=== PATIENT | male | born 1955 | race Caucasian/White ===

== ENCOUNTER → 2016-05-20 | Outpatient (CLI) | payer BC ==
--- NOTE | 2016-05-22 07:39 | XR ---
EXAMINATION TYPE: XR lumbosacral spine min 4V DATE OF EXAM: 05/20/2016 5:01 PM CLINICAL HISTORY: Chronic low back pain TECHNIQUE: Frontal, lateral, and oblique images of the lumbar spine are obtained. COMPARISON: None FINDINGS: There are 5 lumbar type vertebral bodies identified. The lumbar spine shows satisfactory alignment without evidence of acute fracture or dislocation. Vertebral body heights are within normal limits. There is mild multilevel disc space narrowing with relative sparing of L3-L4 and L4-L5 leve ls. There is some mild multilevel spurring most prominent spur seen from the left lateral inferior L2 vertebra and the anterior superior L2 vertebra. The oblique images appear within normal limits. Some vascular calcification overlying soft tissue is seen. IMPRESSION: No acute fracture or dislocation is seen in the lumbar spine. Mild multilevel degenerati ve changes as detailed above.
== END | disposition home or self-care (01) ==
LOC: RADXRYALE 16:57
PROVIDERS: ATTEND Family Medicine
DX: M51.36 Other intervertebral disc degeneration, lumbar region (principal)
CPT/HCPCS: 72110

== ENCOUNTER 2017-08-06 10:06 | Day surgery (SDC) | payer BC ==
[2017-08-04 15:53] VITALS: BMI 38.7
[~2017-08-06 10:06] MED LIST: LACTATED RINGERS 1,000 ML IV SCH; LIDOCAINE 1% 20 ML VIAL (10MG/ML) FOR IV START INTRADERMA PRN; MIDAZOLAM 2 MG/2 ML VIAL IV PRN
[2017-08-06 10:35] VITALS: TEMP 97
[2017-08-06] MEDS ORDERED: LIDOCAINE 1% INJ 10MG/ML (20 ML MDV) ONE (11:21)
[2017-08-06] MEDS ORDERED: PROPOFOL 10 MG/ML 20 ML VIAL IV ONE (11:21)
--- NOTE | 2017-08-06 11:57 | P.PCN ---
Date of Procedure: 08/06/17 Procedure(s) Performed: Procedure: Colonoscopy and biopsy. Preoperative diagnosis: Screening for neoplasia. Postoperative diagnosis: Minimal sigmoid diverticulosis with no evidence of acute diverticulitis, strictures, polyps or cancer. Preparation: HalfLytely prep. Sedation: Was provided by anesthesia. Brief clinical history: The patient is a 61-year-old male who is scheduled for this evaluation for screening for neoplasia age being his risk factor. He has no abdominal complaints, bleeding or anemia. No family history of colon cancer. This would be his first colonoscopy. Procedure: With the patient on his left lateral decubitus position and after informed consent and adequate sedation, the perianal area was inspected and it did not show any fissures or fistulas. There were no masses felt on digital rectal examination. The Olympus CFQ 160L video colonoscope was then inserted in the rectum in the usual fashion and advanced to the cecum. There was minimal diverticulosis seen in the sigmoid with no evidence of acute diverticulitis or strictures. No polyps or tumors were seen. I retroflexed the endoscope in the rectum before the endoscope was withdrawn. The patient tolerated the procedure well. Plan: The patient was reassured. Will await biopsy results. He will follow up with you as planned and I suggested repeat colonoscopy in 10 years.
[2017-08-06 12:13] VITALS: BP 142/94; PULSE 75; RESP 16
== END 2017-08-06 12:30 | disposition home or self-care (01) ==
LOC: ORWHC2ENDO 10:06
DX: Z12.11 Encounter for screening for malignant neoplasm of colon (principal); K57.30 Diverticulosis of large intestine without perforation or abscess without bleeding; E78.5 Hyperlipidemia, unspecified; E07.9 Disorder of thyroid, unspecified; I10 Essential (primary) hypertension; Z88.0 Allergy status to penicillin; Z88.1 Allergy status to other antibiotic agents; Z88.8 Allergy status to other drugs, medicaments and biological substances; Z79.890 Hormone replacement therapy; Z79.899 Other long term (current) drug therapy; Z87.891 Personal history of nicotine dependence; Z95.1 Presence of aortocoronary bypass graft
CPT/HCPCS: G0121; J2001; J2704

== ENCOUNTER → 2017-11-10 | Outpatient (CLI) | payer BC ==
--- NOTE | 2017-11-10 23:28 | XR ---
EXAMINATION TYPE: XR lumbar spine 2 or 3V DATE OF EXAM: 11/10/2017 COMPARISON: NONE HISTORY: 62-year-old male with low back pain TECHNIQUE: 3 view FINDINGS: Osteopenia. 5 lumbar type vertebral bodies. Hypertrophic facet arthropathy lower lumbar spine. Trace grade 1 retrolisthesis at L2-L3 with mild multilevel degenerative disc disease and endplate spondylos is. IMPRESSION: Osteopenia without vertebral compression collapse. Hypertrophic facet arthropathy lower lumbar spine with mild multilevel degenerative disc disease and a grade 1 retrolisthesis at L2-L3.
--- NOTE | 2017-11-10 23:29 | XR ---
EXAMINATION TYPE: XR finger LT DATE OF EXAM: 11/10/2017 COMPARISON: NONE HISTORY: 62-year-old male with left finger pain and swelling after jamming middle finger. TECHNIQUE: 2 views coned-down on the left third finger. FINDINGS: Soft tissue swelling is noted of the third digit. No acute fracture, subluxation, or dislocation. No periostitis or osteolysis. IMPRESSION: Some soft tissue swelling without acute osseous abnormality. Imaging coned down onto the left third f mario.
== END ==
LOC: RADXRYALE 16:16
PROVIDERS: ATTEND Family Medicine
DX: M43.16 Spondylolisthesis, lumbar region (principal); M51.36 Other intervertebral disc degeneration, lumbar region; M46.96 Unspecified inflammatory spondylopathy, lumbar region; M85.88 Other specified disorders of bone density and structure, other site; M79.89 Other specified soft tissue disorders
CPT/HCPCS: 72100

== ENCOUNTER → 2018-01-11 | Outpatient (CLI) | payer BC | END | disposition home or self-care (01) | LOC: RADUSWWP 12:45 | PROVIDERS: ATTEND Family Medicine | DX: M79.605 Pain in left leg (principal); M48.062 Spinal stenosis, lumbar region with neurogenic claudication | CPT/HCPCS: 93923 ==

== ENCOUNTER → 2019-03-21 | Outpatient (CLI) | payer BC ==
[2019-03-21 14:19] LABS: HCT 48.2 % (39.0-53.0); MCH 32.1 pg (25.0-35.0); MCHC 33.3 g/dL (31.0-37.0); MCV 96.5 fL (80.0-100.0); Mean Platelet Volume 7.3; Platelet Count 335 k/uL (150-450); RBC 4.99 m/uL (4.30-5.90); RDW 13.2 % (11.5-15.5); WBC 9.7 k/uL (3.8-10.6)
[2019-03-21 14:27] LABS: ALT 30 U/L (4-49); AST 31 U/L (17-59); African American GFR (CKD) >90 (>60 ml/min/1.73 sqM); Albumin 4.5 g/dL (3.5-5.0); Alkaline Phosphatase 65 U/L (38-126); Anion Gap 10 mmol/L; Blood Urea Nitrogen 15 mg/dL (9-20); Calcium 10.2 mg/dL (8.4-10.2); Carbon Dioxide 29 mmol/L (22-30); Chloride 102 mmol/L (98-107); Glucose 100 mg/dL (74-99); Non-African American GFR(CKD) 85 (>60 ml/min/1.73 sqM); Potassium 4.2 mmol/L (3.5-5.1); Sodium 141 mmol/L (137-145); Total Bilirubin 0.5 mg/dL (0.2-1.3); Total Protein 7.5 g/dL (6.3-8.2)
[2019-03-21 14:31] LABS: INR 0.9 (<1.2); Partial Thromboplastin Time 22.4 sec (22.0-30.0); Prothrombin Time 9.9 sec (9.0-12.0)
[2019-03-21 15:54] LABS: Appearance,Urine Clear (Clear); Bilirubin,Urine Negative (Negative); Blood,Urine Negative (Negative); Color,Urine Yellow; Glucose,Urine (UA) Negative (Negative); Ketones,Urine Negative (Negative); Leukocyte Esterase,Urine Negative (Negative); Nitrite,Urine Negative (Negative); Protein,Urine Negative (Negative); Specific Gravity,Urine 1.009 (1.001-1.035); Urobilinogen,Urine <2.0 mg/dL (<2.0)
== END | disposition home or self-care (01) ==
LOC: LABPAT 13:05
PROVIDERS: ATTEND Orthopaedic Surgery
DX: Z01.812 Encounter for preprocedural laboratory examination (principal); M16.12 Unilateral primary osteoarthritis, left hip
CPT/HCPCS: 80053; 81003; 85027; 85610; 85730; 86850; 86900; 86901; 87070; 93005

== ENCOUNTER 2019-03-29 08:01 | Observation (INO) | payer BC ==
[2019-03-23 09:06] VITALS: BMI 40.1
[~2019-03-29 08:01] MED LIST changes: +ACETAMINOPHEN TAB 500 MG TAB PO ONE; +CLINDAMYCIN 900 MG in DEXTROSE 5% IN WATER 50 ML IVPB ONE; +GABAPENTIN 300 MG CAP PO ONE; +HYDROmorphone 0.5 MG/0.5 ML SYRINGE IVP PRN; +LIDOCAINE 1% (10MG/ML) FOR IV START INTRADERMA PRN; -LIDOCAINE 1% 20 ML VIAL (10MG/ML) FOR IV START INTRADERMA PRN; +MELOXICAM 7.5 MG TAB PO ONE; +METOCLOPRAMIDE 5 MG/ML 2 ML VIAL IVP PRN; -MIDAZOLAM 2 MG/2 ML VIAL IV PRN; +ONDANSETRON 4 MG/2 ML VIAL IVP ONE; +TRANEXAMIC ACID 1,000 MG in SODIUM CHLORIDE 0.9% 100 ML IVPB ONE
[2019-03-29] MEDS ORDERED: DEXAMETHASONE SOD PHOS (MDV) 100 MG/10 ML VIAL IVP ONE (08:38)
[2019-03-29] MEDS ORDERED: PHENYLEPHRINE-0.9% NACL SYG 1 MG/10 ML SYRINGE ONE (09:09)
[2019-03-29] MEDS ORDERED: fentaNYL (PF) 50 MCG/ML 2 ML AMP ONE (09:09)
[2019-03-29] MEDS ORDERED: HEPARIN SODIUM,PORCINE 10,000 UNIT/ML 1 ML VIAL ONE (09:09)
[2019-03-29] MEDS ORDERED: LACTATED RINGERS 1,000 ML BAG IV ONE (09:09)
[2019-03-29] MEDS ORDERED: ePHEDrine SULFATE/0.9% NACL/PF 50 MG/5 ML SYRINGE IV ONE (09:09)
[2019-03-29] MEDS ORDERED: PROPOFOL 10 MG/ML 20 ML VIAL IV ONE (09:09)
[2019-03-29] MEDS ORDERED: MIDAZOLAM 2 MG/2 ML VIAL ONE (09:09)
[2019-03-29] MEDS ORDERED: ceFAZolin 3,000 MG in SODIUM CHLORIDE 0.9% IRRIGATIO 3,000 ML IRRIGATION ONE (09:30)
[2019-03-29] MEDS ORDERED: ROPIVACAINE 246.25 MG, EPINEPHrine 0.5 MG, KETOROLAC 30 MG, cloNIDine HCL/PF 80 MCG, WA... MISCELLANE ONE ×5 (09:41)
--- NOTE | 2019-03-29 10:45 | P.OP ---
Date of Procedure: 03/29/19 Preoperative Diagnosis: Severe osteoarthritis left hip Postoperative Diagnosis: Severe osteoarthritis left hip Procedure(s) Performed: Left total hip arthroplasty with a direct anterior approach Implants: [employer] nephew Polarstem size 4 standard [employer]hew R3, 3 hole acetabular shell, 52 mm [employer] reflection 6.5 mm cancellus screw, 20 mm 2 [employer] R3, XLPE 20 acetabular liner [employer]hew Oxinium femoral head 36 m, +0 All components were press-fit. The articulation is Oxinium on polyethylene. Anesthesia: spinal Surgeon: Gene Miles Mortgage Loan Originator #1: Patrick Rico Estimated Blood Loss (ml): 150 (66 mL returned with Cell Saver) Pathology: other (Femoral head) Condition: stable Disposition: PACU Indications for Procedure: After failure of conservative treatment we discussed the surgical and nonsurgical treatment options at length. Patient wishes to proceed with a total hip arthroplasty with a direct anterior approach. Complications specific to this procedure were discussed at length, including but not limited to infection, leg length discrepancy, dislocation, and nerve injury. Patient is aware of all these complications and informed consent was obtained Operative Findings: The operative findings are consistent with severe osteoarthritis of the left hip Description of Procedure: Patient was seen and evaluated in the preoperative area, consent was reviewed, and the surgical site was marked with a skin marker. Patient was then brought to the operating room and given prophylactic antibiotics intravenously. 1 g of Tranexamic acid was also given. A spinal anesthetic was administered by the anesthesia department. The patient was then placed on the Ingram table with the bony prominences well-padded. The hip area was then prepped and draped in usual sterile fashion. A universal timeout was then performed, which confirmed the patient's name, surgical site, ALLERGIES, and procedure being performed. Next the incision site was located at 1 cm distal and 1 cm lateral to the anterior superior iliac spine. The skin and subcutaneous tissues were sharply incised. Incision was carefully dissected down to the fascia overlying the tensor fascia alfonso muscle. This fascia was then incised in line with the incision. Next, using blunt finger dissection, the tensor fascia alfonso muscle was dissected off its investing fascia. The muscle was then carefully retracted laterally with a cobra retractor over the lateral neck of the femur. Next, the circumflex vessels were identified and cauterized using the AquaMantis device. The anterior hip capsule was then exposed. The capsule was then opened and an inverted T fashion. Cobra retractors were then placed intracapsularly. The proximal femur was then visualized. The femoral neck was then osteotomized appropriate level above the lesser trochanter. Small amount of traction was placed with the Ingram table. A small wedge of bone was then removed from the remaining femoral head. Next, using a corkscrew femoral head was easily removed from the acetabulum. On gross visual inspection, the femoral head had complete loss of articular cartilage in multiple periarticular osteophytes. Attention was then turned to the acetabulum. the acetabulum was exposed and any remaining labrum was excised. Sequential reaming of the acetabulum was performed using fluoroscopic guidance. When the appropriate size was reached, a trial was then placed. The position and fit of the trial was checked with fluoroscopy. The trial was then removed. Then, using fluoroscopic guidance, the final implant was impacted at 20 of anteversion and 40 of abduction, and fully seated in the acetabulum. 2 screws were then placed in the acetabulum. Again fluoroscopy was used to check position of the screws. Next, the liner was then impacted, with a 20 elevated liner located in the anterior superior quadrant. Component locking was confirmed. Attention was then directed to the femur. With the aid of the Ingram table, the femur was externally rotated to approximately 130, extended, and abducted under the opposite leg. A side hook was then placed under the proximal femur, and the side hook elevator was used to elevate the proximal femur. Retractors were then placed. A capsular release was performed, as well as a release of the conjoined tendon, which afforded excellent visualization of the proximal femur. Next, a box osteotome was used to lateralize the proximal femur. A hand quilter was then used to locate the femoral canal. Sequential broaching was then performed with appropriate size which afforded excellent fixation in the proximal femur. A trial was then placed with appropriate head and neck, and the hip was gently reduced with the aid of the Ingram table. Fluoroscopy was then used to check position of the components, as well as to ensure equal leg lengths. The hip was then gently dislocated and the trials were then removed. Final implants were then impacted and the hip was again reduced. Final fluoroscopic x-rays confirmed that the components were in anatomic position, as well as equal leg lengths. The hip was also taken through range of motion, and found to be stable. The hip was then copiously irrigated with antibiotic solution with pulsatile lavage. The hip was then irrigated with Irrisept solution. The soft tissues were then injected with a ropivacaine solution, which consisted of 246.25 mg of ropivacaine, 0.5 mg of epinephrine, 30 mg of Toradol, 80 g of clonidine, and 48.45 mL of sterile water, for a total of 100 mL of fluid injected. A second dose of 1 g of Tranexamic acid was also given. the fascia was then closed with 2-0 strata fix suture. The subcutaneous tissue was closed with 3-0 Vicryl. The subcuticular tissue was closed with 3-0 strata fix suture. The skin was then closed with Dermabond glue and a sterile silver dressing. The patient was then transferred to the recovery room in stable condition. The retail assistant manager JONI Ramos was required due to the complexity of surgery, and the need for skilled surgical supervisor for positioning, draping, exposure, retraction, and closure of the wound.
[2019-03-29] MEDS ORDERED: LACTATED RINGERS 1,000 ML IV ONE (10:49)
[2019-03-29] MEDS ORDERED: MAGNESIUM HYDROXIDE 2,400 MG/10 ML CUP PO PRN (11:05)
[2019-03-29] MEDS ORDERED: ONDANSETRON 4 MG/2 ML VIAL IVP PRN (11:05)
[2019-03-29] MEDS ORDERED: DIAZEPAM 5 MG TAB PO PRN (11:05)
[2019-03-29] MEDS ORDERED: HYDROcodone/APAP 5-325MG 1 EACH TAB PO PRN (11:05)
[2019-03-29] MEDS ORDERED: HYDROmorphone 0.5 MG/0.5 ML SYRINGE IVP PRN (11:05)
[2019-03-29] MEDS ORDERED: NALOXONE 0.4 MG/ML 1 ML VIAL IV PRN (11:05)
[2019-03-29] MEDS ORDERED: HYDROmorphone 1 MG/ML 1 ML SYRINGE IVP PRN (11:05)
[2019-03-29] MEDS ORDERED: hydrOXYzine PAMOATE 25 MG CAP PO PRN (11:05)
[2019-03-29] MEDS: LACTATED RINGERS 1,000 ML IV SCH ×2 (13:09→21:20)
--- NOTE | 2019-03-29 13:19 | XR ---
EXAMINATION TYPE: XR Hip Limited LT DATE OF EXAM: 03/29/2019 CLINICAL HISTORY: Left hip pain and osteoarthritis. TECHNIQUE: Single AP portable view of left hip is obtained immediately postoperatively. COMPARISON: None. FINDINGS: Metallic hardware from left hip arthroplasty is seen and appears satisfactory in alignment and position. There is evidence of recent surgery with subcutaneous gas noted laterally. IMPRESSION: Metallic hardware from left hip arthroplasty is satisfactory in position.
--- NOTE | 2019-03-29 13:20 | FL ---
EXAMINATION TYPE: FL guidance operating room, XR Hip Limited LT DATE OF EXAM: 03/29/2019 CLINICAL HISTORY: Fluoroscopic documentation during left hip arthroplasty TECHNIQUE: Fluoroscopy. COMPARISON: None. FINDINGS: Fluoroscopic guidance was provided during procedure performed by Dr. Miles. A total of 42 seconds of fluoroscopic time was utilized during the procedure and 2 spot images was acquired dur ing left hip arthroplasty. IMPRESSION: As Above.
--- NOTE | 2019-03-29 17:03 | P.CONS ---
History of Present Illness - Reason for Consult Recommendations regarding antidepressant medications. - History of Present Illness Patient is admitted for elective left hip arthroplasty clinically doing well did pass gas did not move his bowel get denied any fever chills dysuria doesn't have any Faulkner catheter this time. Patient patient's pain is well-controlled with the small dose of [place]. Patient blood pressures fairly okay at this time patient takes atenolol dose of which I'm cutting it down to have as a patient is expected to have a hypotension. Review of Systems REVIEW OF SYSTEMS: CONSTITUTIONAL: No fever, no malaise, no fatigue. HEENT: No recent visual problems or hearing problems. Denied any sore throat. CARDIOVASCULAR: No chest pain, orthopnea, PND, no palpitations, no syncope. PULMONARY: No shortness of breath, no cough, no hemoptysis. GASTROINTESTINAL: No diarrhea, no nausea, no vomiting, no abdominal pain. NEUROLOGICAL: No headaches, no weakness, no numbness. HEMATOLOGICAL: Denies any bleeding or petechiae. GENITOURINARY: Denies any burning micturition, frequency, or urgency. MUSCULOSKELETAL/RHEUMATOLOGICAL: Denies any joint pain, swelling, or any muscle pain. ENDOCRINE: Denies any polyuria or polydipsia. The rest of the 14-point review of systems is negative. Past Medical History Past Medical History: Hyperlipidemia, Hypertension, Osteoarthritis (OA), Thyroid Disorder History of Any Multi-Drug Resistant Organisms: None Reported Past Surgical History: Heart Catheterization, Orthopedic Surgery, Tonsillectomy Additional Past Surgical History / Comment(s): heart cath x2,rt hand surg,rt arm tendon repair Past Anesthesia/Blood Transfusion Reactions: No Reported Reaction Past Psychological History: No Psychological Hx Reported Smoking Status: Former smoker Past Alcohol Use History: Occasional Additional Past Alcohol Use History / Comment(s): STARTED SMOKING AT AGE 17 quit smoking AT AGE 32 ,smoked approx 3ppd Past Drug Use History: Marijuana Additional Drug Use History / Comment(s): OCCASIONAL USE - Past Family History Mother Family Medical History: Deep Vein Thrombosis (DVT) Brother(s) Family Medical History: Deep Vein Thrombosis (DVT) Sister(s) Family Medical History: Cancer Medications and Allergies Home Medications Medication Instructions Recorded Confirmed Type Aspirin 81 mg PO DAILY 08/04/17 03/29/19 History Atenolol 100 mg PO QAM 08/04/17 03/29/19 History Cholecalciferol (Vitamin D3) 2,000 unit PO DAILY 08/04/17 03/29/19 History [Vitamin D3] Isosorbide Mononitrate ER [Imdur] 30 mg PO QAM 08/04/17 03/29/19 History Levothyroxine Sodium [Synthroid] 200 mcg PO QAM 08/04/17 03/29/19 History Multivitamins, Thera [Multivitamin 1 tab PO DAILY 08/04/17 03/29/19 History (formulary)] Niacin [Niacin ER] 1,000 mg PO DAILY 08/04/17 03/29/19 History [place]-3/Dha/Epa/Fish Oil [Fish Oil 300 mg PO DAILY 08/04/17 03/29/19 History 500 mg Softgel] Vitamin B Complex 1 each PO DAILY 08/04/17 03/29/19 History Torsemide [Demadex] 10 mg PO DAILY 03/23/19 03/29/19 History Allergies Allergy/AdvReac Type Severity Reaction Status Date / Time azithromycin [From Zithromax] Allergy Rash/Hives Verified 03/29/19 08:23 citalopram [From Celexa] Allergy Unknown Verified 03/29/19 08:23 fenofibrate Allergy JOINT PAIN Verified 03/29/19 08:23 hydrochlorothiazide Allergy Unknown Verified 03/29/19 08:23 Penicillins Allergy Dyspnea Verified 03/29/19 08:23 [id number] Reductase Allergy muscle pain Verified 03/29/19 08:23 Inhibitor Physical Exam Vitals: Vital Signs Temp Pulse Pulse Resp BP Pulse Ox 03/29/19 15:00 97.7 F 87 18 103/67 93 L 03/29/19 14:25 85 103/67 91 L 03/29/19 14:10 79 118/72 92 L 03/29/19 13:55 73 136/73 93 L 03/29/19 13:40 69 128/76 95 03/29/19 13:30 98.0 F 72 18 133/77 96 03/29/19 13:00 67 16 126/62 95 03/29/19 12:30 68 16 112/56 95 03/29/19 12:00 71 16 110/60 94 L 03/29/19 11:33 70 16 122/66 94 L 03/29/19 11:18 70 16 122/65 95 03/29/19 11:03 96.8 F L 74 16 83/45 95 03/29/19 08:37 97.7 F 74 16 135/68 94 L Intake and Output 03/29/19 03/29/19 03/29/19 06:59 14:59 22:59 Intake Total 1407 Output Total 150 Balance 1257 Intake: IV 1407 Output: Estimated Blood Loss 150 Other: Weight 122.1 kg PHYSICAL EXAMINATION: GENERAL: The patient is alert and oriented x3, not in any acute distress. Well developed, well nourished. HEENT: Pupils are round and equally reacting to light. EOMI. No scleral icterus. No conjunctival pallor. Normocephalic, atraumatic. No pharyngeal erythema. No thyromegaly. CARDIOVASCULAR: S1 and S2 present. No murmurs, rubs, or gallops. PULMONARY: Chest is clear to auscultation, no wheezing or crackles. ABDOMEN: Soft, nontender, nondistended, normoactive bowel sounds. No palpable organomegaly. MUSCULOSKELETAL: No joint swelling or deformity. Surgical site area looks clean. EXTREMITIES: No cyanosis, clubbing, or pedal edema. NEUROLOGICAL: Gross neurological examination did not reveal any focal deficits. SKIN: No rashes. Assessment and Plan Plan: -Hypertension: As mentioned above will cut down the dose of atenolol to have patient will be continued on IV fluids patient is expected to have perioperative hypotension. -Hyperlipidemia -Hypothyroidism -Right hip arthroplasty DVT prophylaxis and pain management as per primary service
[2019-03-29] MEDS: CLINDAMYCIN 900 MG in DEXTROSE 5% IN WATER 50 ML IVPB SCH ×2 (17:53)
[2019-03-29] MEDS: HYDROcodone/APAP 5-325MG 1 EACH TAB PO PRN (19:44)
[2019-03-29] MEDS: ASPIRIN 325 MG TAB PO SCH (20:34)
[2019-03-29] MEDS ORDERED: SENNOSIDES-DOCUSATE SODIUM 1 EACH TAB PO SCH (21:00)
[2019-03-30] MEDS: CLINDAMYCIN 900 MG in DEXTROSE 5% IN WATER 50 ML IVPB SCH ×2 (00:51)
[2019-03-30] MEDS: HYDROcodone/APAP 5-325MG 1 EACH TAB PO PRN ×2 (02:26→09:05)
[2019-03-30] MEDS: LACTATED RINGERS 1,000 ML IV SCH (05:56)
[2019-03-30] MEDS ORDERED: LEVOTHYROXINE 100 MCG TAB PO SCH (06:30)
--- NOTE | 2019-03-30 08:07 | P.DS ---
Providers Date of admission: 03/29/19 08:01 Expected date of discharge: 03/30/19 Attending physician: Gene Miles Consults: 03/29/19 11:05 Consult Physician Routine Consulting Provider: Litzy Osorio Consult Reason/Comments: Medical management Do you want consulting provider notified?: Yes Primary care physician: Gene Colon - Discharge Diagnosis(es) (1) Primary osteoarthritis of left hip Current Visit: Yes Status: Acute (2) Status post total hip replacement, left Current Visit: Yes Status: Acute Hospital Course: This is a 63-year-old male with known history of degenerative arthritis of the left hip. The patient presents for evaluation. After discussion and consideration patient elects to proceed with total hip arthroplasty. The patient is seen preoperatively by his primary care physician and cleared for surgery. Patient is admitted to [facility] on 03/29/2019 for total hip arthroplasty. The procedures performed without complication or sequelae. The patient is doing well postoperatively. Labs and vital signs are stable on day of discharge. On day of discharge patient's hip incision is healing well. There is minimal erythema. There is no drainage noted at this time. There is minimal soft tissue swelling to the hip and thigh. Patient has full foot and ankle motion without difficulty or pain. Neurovascular status to the left lower extremity is intact. Patient is discharged to home in good condition. Please see med rec for accurate list of home medications. Plan - Discharge Summary Discharge Rx Participant: No New Discharge Prescriptions: New Aspirin 325 mg PO BID #60 tab HYDROcodone/APAP 7.5-325MG [[place] 7.5-325] 1 - 2 tab PO Q4-6H PRN #50 tab PRN Reason: Pain Sennosides-Docusate Sodium [Senokot-S] 1 tab PO BID #60 tablet No Action [place]-3/Dha/Epa/Fish Oil [Fish Oil 500 mg Softgel] 300 mg PO DAILY Vitamin B Complex 1 each PO DAILY Niacin [Niacin ER] 1,000 mg PO DAILY Multivitamins, Thera [Multivitamin (formulary)] 1 tab PO DAILY Aspirin 81 mg PO DAILY Isosorbide Mononitrate ER [Imdur] 30 mg PO QAM Levothyroxine Sodium [Synthroid] 200 mcg PO QAM Atenolol 100 mg PO QAM Cholecalciferol (Vitamin D3) [Vitamin D3] 2,000 unit PO DAILY Torsemide [Demadex] 10 mg PO DAILY Discharge Medication List Aspirin 81 mg PO DAILY 08/04/17 [History] Atenolol 100 mg PO QAM 08/04/17 [History] Cholecalciferol (Vitamin D3) [Vitamin D3] 2,000 unit PO DAILY 08/04/17 [History] Isosorbide Mononitrate ER [Imdur] 30 mg PO QAM 08/04/17 [History] Levothyroxine Sodium [Synthroid] 200 mcg PO QAM 08/04/17 [History] Multivitamins, Thera [Multivitamin (formulary)] 1 tab PO DAILY 08/04/17 [History] Niacin [Niacin ER] 1,000 mg PO DAILY 08/04/17 [History] [place]-3/Dha/Epa/Fish Oil [Fish Oil 500 mg Softgel] 300 mg PO DAILY 08/04/17 [History] Vitamin B Complex 1 each PO DAILY 08/04/17 [History] Torsemide [Demadex] 10 mg PO DAILY 03/23/19 [History] Aspirin 325 mg PO BID #60 tab 03/30/19 [Rx] HYDROcodone/APAP 7.5-325MG [[place] 7.5-325] 1 - 2 tab PO Q4-6H PRN #50 tab 03/30/19 [Rx] Sennosides-Docusate Sodium [Senokot-S] 1 tab PO BID #60 tablet 03/30/19 [Rx] Follow up Appointment(s)/Referral(s): Gene Miles DO [Doctor of Osteopathic Medicine] - 2 Weeks Activity/Diet/Wound Care/Special Instructions: May bear weight as tolerated with walker. May shower if no drainage from incision. Discharge Disposition: HOME WITH HOME HEALTH SERVICES
[2019-03-30 08:14] LABS: Basophils % (A) 0 %; Eosinophils % (A) 0 %; Lymphocytes # (A) 1.9 k/uL (1.0-4.8); Lymphocytes % (A) 15 %; MCH 29.9 pg (25.0-35.0); MCHC 30.5 g/dL (31.0-37.0); MCV 98.1 fL (80.0-100.0); Mean Platelet Volume 7.3; Monocytes # (A) 0.7 k/uL (0-1.0); Monocytes % (A) 5 %; Neutrophils # (A) 9.7 k/uL (1.3-7.7); Neutrophils % (A) 78 %; Platelet Count 278 k/uL (150-450); RBC 4.69 m/uL (4.30-5.90); RDW 13.4 % (11.5-15.5); WBC 12.4 k/uL (3.8-10.6)
[2019-03-30 08:26] VITALS: BP 173/82; PULSE 89; RESP 17; TEMP 98.1
[2019-03-30] MEDS ORDERED: NIACIN TR 500 MG CAPLET PO SCH (09:00)
[2019-03-30] MEDS ORDERED: ATENOLOL 50 MG TAB PO SCH (09:00)
[2019-03-30] MEDS ORDERED: ISOSORBIDE MONONITRATE ER 30 MG TAB.ER.24H PO SCH (09:00)
[2019-03-30] MEDS ORDERED: ASPIRIN 81 MG PO SCH (09:00)
[2019-03-30] MEDS: ASPIRIN 325 MG TAB PO SCH (09:05)
--- NOTE | 2019-03-30 15:18 | P.PN ---
Subjective No overnight events patient is clinically doing well. Objective - Vital Signs Vital signs: Vital Signs Temp 98.1 F 03/30/19 07:43 Pulse 89 03/30/19 07:43 Resp 17 03/30/19 07:43 BP 173/82 03/30/19 07:43 Pulse Ox 98 03/30/19 07:43 Intake & Output 03/29/19 03/30/19 03/30/19 18:59 06:59 18:59 Intake Total 1407 480 Output Total 150 Balance 1257 480 Weight 122.1 kg Intake: IV 1407 Oral 480 Output: Estimated Blood Loss 150 Other: # Voids 1 - Exam PHYSICAL EXAMINATION: GENERAL: The patient is alert and oriented x3, not in any acute distress. Well developed, well nourished. HEENT: Pupils are round and equally reacting to light. EOMI. No scleral icterus. No conjunctival pallor. Normocephalic, atraumatic. No pharyngeal erythema. No thyromegaly. CARDIOVASCULAR: S1 and S2 present. No murmurs, rubs, or gallops. PULMONARY: Chest is clear to auscultation, no wheezing or crackles. ABDOMEN: Soft, nontender, nondistended, normoactive bowel sounds. No palpable organomegaly. MUSCULOSKELETAL: No joint swelling or deformity. Surgical site area looks clean. EXTREMITIES: No cyanosis, clubbing, or pedal edema. NEUROLOGICAL: Gross neurological examination did not reveal any focal deficits. SKIN: No rashes. - Labs CBC & Chem 7: 03/30/19 07:45 Labs: Abnormal Lab Results - Last 24 Hours (Table) 03/30/19 Range/Units 07:45 WBC 12.4 H (3.8-10.6) k/uL MCHC 30.5 L (31.0-37.0) g/dL Neutrophils # 9.7 H (1.3-7.7) k/uL Assessment and Plan Plan: -Hypertension: Patient can be resumed on his home regimen and can be discharged from medical perspective -Hyperlipidemia -Hypothyroidism -Right hip arthroplasty DVT prophylaxis and pain management as per primary service
== END 2019-03-30 12:31 | disposition home health service (06) ==
LOC: INTOOBSV 08:01 → 2ORMAIN 08:01 → 4SSUR 13:00 → UNDODISIN 03-30 12:31
PROVIDERS: ADMIT Orthopaedic Surgery; ATTEND Orthopaedic Surgery
DX: M16.12 Unilateral primary osteoarthritis, left hip (principal); E78.5 Hyperlipidemia, unspecified; I10 Essential (primary) hypertension; I25.10 Atherosclerotic heart disease of native coronary artery without angina pectoris; E03.9 Hypothyroidism, unspecified; H91.90 Unspecified hearing loss, unspecified ear; R26.81 Unsteadiness on feet; E66.9 Obesity, unspecified; Z79.82 Long term (current) use of aspirin; Z79.890 Hormone replacement therapy; Z79.899 Other long term (current) drug therapy; Z79.02 Long term (current) use of antithrombotics/antiplatelets; Z88.1 Allergy status to other antibiotic agents; Z88.0 Allergy status to penicillin; Z88.8 Allergy status to other drugs, medicaments and biological substances; Z87.891 Personal history of nicotine dependence; Z68.38 Body mass index [BMI] 38.0-38.9, adult; Z83.3 Family history of diabetes mellitus; Z82.49 Family history of ischemic heart disease and other diseases of the circulatory system
CPT/HCPCS: 27130; 97161; 97535; 97165; 86891; 85025; 88300; 73501; G0378 ×2; G0379; C1776; J2250; J0171; J1644; J2405; J0690; J3010; J1885; J1100; J2795; J2370; J2704; J0735; 86850; 86900; 86901

== ENCOUNTER → 2020-05-15 | Outpatient (CLI) | payer BC ==
--- NOTE | 2020-05-15 22:15 | XR ---
EXAMINATION TYPE: XR chest 2V DATE OF EXAM: 05/15/2020 COMPARISON: 08/19/2012 INDICATION: Presurgical clearance, heart disease TECHNIQUE: Frontal and lateral views of the chest are obtained. FINDINGS: The heart size is normal. The pulmonary vasculature is normal. The lungs are clear. IMPRESSION: 1. No acute pulmonary process.
== END ==
LOC: RADXRYALE 16:35
PROVIDERS: ATTEND Family Medicine
DX: I51.9 Heart disease, unspecified (principal)
CPT/HCPCS: 71046

== ENCOUNTER → 2020-06-04 | Outpatient (CLI) | payer BC ==
[2020-06-04 09:21] LABS: HCT 47.8 % (39.0-53.0); MCH 32.3 pg (25.0-35.0); MCHC 33.4 g/dL (31.0-37.0); MCV 96.7 fL (80.0-100.0); Mean Platelet Volume 6.9; Platelet Count 244 k/uL (150-450); RBC 4.95 m/uL (4.30-5.90); RDW 13.7 % (11.5-15.5)
[2020-06-04 09:30] LABS: INR 0.9 (<1.2); Partial Thromboplastin Time 23.4 sec (22.0-30.0); Prothrombin Time 9.8 sec (9.0-12.0)
[2020-06-04 09:49] LABS: ALT 35 U/L (4-49); AST 29 U/L (17-59); African American GFR (CKD) >90 (>60 ml/min/1.73 sqM); Albumin 4.3 g/dL (3.5-5.0); Alkaline Phosphatase 49 U/L (38-126); Anion Gap 7 mmol/L; Blood Urea Nitrogen 18 mg/dL (9-20); Calcium 9.9 mg/dL (8.4-10.2); Carbon Dioxide 34 mmol/L (22-30); Chloride 101 mmol/L (98-107); Glucose 167 mg/dL (74-99); Non-African American GFR(CKD) 86 (>60 ml/min/1.73 sqM); Potassium 4.6 mmol/L (3.5-5.1); Sodium 142 mmol/L (137-145); Total Bilirubin 0.4 mg/dL (0.2-1.3); Total Protein 7.2 g/dL (6.3-8.2)
[2020-06-04 09:53] LABS: Appearance,Urine Clear (Clear); Bilirubin,Urine Negative (Negative); Blood,Urine Negative (Negative); Color,Urine Light Yellow; Glucose,Urine (UA) Negative (Negative); Ketones,Urine Negative (Negative); Leukocyte Esterase,Urine Negative (Negative); Nitrite,Urine Negative (Negative); Protein,Urine Negative (Negative); Specific Gravity,Urine 1.003 (1.001-1.035); Urobilinogen,Urine <2.0 mg/dL (<2.0)
== END | disposition home or self-care (01) ==
LOC: LABPAT 07:28
PROVIDERS: ATTEND Orthopaedic Surgery
DX: Z01.812 Encounter for preprocedural laboratory examination (principal); I45.10 Unspecified right bundle-branch block; R94.31 Abnormal electrocardiogram [ECG] [EKG]
CPT/HCPCS: 36415; 80053; 81003; 85027; 85610; 85730; 87070

== ENCOUNTER 2020-06-12 10:21 | Day surgery (SDC) | payer BC ==
[2020-06-06 09:11] VITALS: BMI 40.1
[~2020-06-12 10:21] MED LIST changes: -ACETAMINOPHEN TAB 500 MG TAB PO ONE; +ACETAMINOPHEN TAB 500 MG TAB PO PRN; -CLINDAMYCIN 900 MG in DEXTROSE 5% IN WATER 50 ML IVPB ONE; -GABAPENTIN 300 MG CAP PO ONE; +GABAPENTIN 300 MG CAP PO PRN; -LACTATED RINGERS 1,000 ML IV SCH; -MELOXICAM 7.5 MG TAB PO ONE; +MELOXICAM 7.5 MG TAB PO PRN; -METOCLOPRAMIDE 5 MG/ML 2 ML VIAL IVP PRN; +MIDAZOLAM 2 MG/2 ML VIAL IV PRN; -ONDANSETRON 4 MG/2 ML VIAL IVP ONE; -TRANEXAMIC ACID 1,000 MG in SODIUM CHLORIDE 0.9% 100 ML IVPB ONE; +TRANEXAMIC ACID 1,000 MG in SODIUM CHLORIDE 0.9% 100 ML IVPB PRN; +ceFAZolin 3 GM in SODIUM CHLORIDE 0.9% 100 ML IVPB PRN
[2020-06-12] MEDS ORDERED: ONDANSETRON 4 MG/2 ML VIAL ONE (10:52)
[2020-06-12] MEDS: LACTATED RINGERS 1,000 ML IV SCH ×2 (10:58→17:14)
[2020-06-12] MEDS ORDERED: DEXAMETHASONE SOD PHOSPHATE 4 MG/ML 1 ML VIAL IVP ONE (11:00)
[2020-06-12] MEDS ORDERED: HYDROmorphone 0.2 MG/1 ML SYRINGE IVP PRN (11:28)
[2020-06-12] MEDS ORDERED: MAGNESIUM HYDROXIDE 2,400 MG/10 ML CUP PO PRN (11:28)
[2020-06-12] MEDS ORDERED: HYDROmorphone 0.5 MG/0.5 ML SYRINGE IVP PRN (11:28)
[2020-06-12] MEDS ORDERED: hydrOXYzine pamoate 25 MG CAP PO PRN (11:28)
[2020-06-12] MEDS ORDERED: ONDANSETRON 4 MG/2 ML VIAL IVP PRN (11:28)
[2020-06-12] MEDS ORDERED: NALOXONE 0.4 MG/ML 1 ML VIAL IV PRN (11:28)
[2020-06-12] MEDS ORDERED: HYDROmorphone 1 MG/ML 1 ML SYRINGE IVP PRN (11:28)
[2020-06-12] MEDS ORDERED: HYDROcodone/APAP 7.5-325MG 1 EACH TAB PO PRN (11:30)
[2020-06-12] MEDS ORDERED: HEPARIN SODIUM,PORCINE 10,000 UNIT/ML 1 ML VIAL ONE (11:54)
[2020-06-12] MEDS ORDERED: fentaNYL (PF) 50 MCG/ML 2 ML AMP ONE (11:54)
[2020-06-12] MEDS ORDERED: MIDAZOLAM 2 MG/2 ML VIAL ONE (11:54)
[2020-06-12] MEDS ORDERED: TRANEXAMIC ACID 1,000 MG/10 ML VIAL ONE (11:54)
[2020-06-12] MEDS ORDERED: SODIUM CHLORIDE 0.9% 100 ML BAG ONE (11:54)
[2020-06-12] MEDS ORDERED: KETAMINE 10 MG/ML 20 ML VIAL ONE (11:54)
[2020-06-12] MEDS ORDERED: SODIUM CHLORIDE 0.9% IRRIG 1,000 ML BTL IRRIGATION ONE (11:54)
[2020-06-12] MEDS ORDERED: LIDOCAINE 1% INJ 10MG/ML (20 ML MDV) ONE (11:54)
[2020-06-12] MEDS ORDERED: PROPOFOL 10 MG/ML 20 ML VIAL IV ONE (11:54)
[2020-06-12] MEDS ORDERED: PHENYLEPHRINE-0.9% NACL SYG 1,000 MCG/10 ML SYRINGE ONE (11:54)
[2020-06-12] MEDS ORDERED: ceFAZolin 3,000 MG in SODIUM CHLORIDE 0.9% IRRIGATIO 3,000 ML IRRIGATION ONE (12:02)
[2020-06-12] MEDS: ROPIVACAINE 246.25 MG, EPINEPHrine 0.5 MG, KETOROLAC 30 MG, cloNIDine HCL/PF 80 MCG, WA... MISCELLANE PRN ×10 (12:29→13:25)
[2020-06-12] MEDS ORDERED: LACTATED RINGERS 1,000 ML IV ONE (12:58)
--- NOTE | 2020-06-12 13:34 | P.OP ---
Date of Procedure: 06/12/20 Preoperative Diagnosis: Severe osteoarthritis right hip Postoperative Diagnosis: Severe osteoarthritis right hip Procedure(s) Performed: Right total hip arthroplasty with a direct anterior approach Implants: [employer] Polarstem standard size 4 [employer] R3, 3 hole hemispherical acetabular shell, 52 mm [employer] Reflection 6.5 mm cancellus screw, 20 mm 2 [employer] R3, XLPE 20 acetabular liner [employer] Oxinium femoral head 36 m, +0 All components were press-fit. The articulation is Oxinium on polyethylene. Anesthesia: spinal Surgeon: Gene Miles Cylinder Block Mechanic #1: Donna Resendez Estimated Blood Loss (ml): 420 (200 mL returned with Cell Saver) Pathology: other (Femoral head) Condition: stable Disposition: PACU Indications for Procedure: After failure of conservative treatment we discussed the surgical and nonsurgical treatment options at length. Patient wishes to proceed with a total hip arthroplasty with a direct anterior approach. Complications specific to this procedure were discussed at length, including but not limited to infection, leg length discrepancy, dislocation, nerve injury, and fracture. Covid-19 was also discussed at length with the patient, and they are aware of the current policies and procedures. The patient was given the option of delaying surgery, but they elect to proceed knowing these risks. Patient is aware of all these complications and informed consent was obtained Operative Findings: The operative findings are consistent with severe osteoarthritis of the right hip Description of Procedure: Patient was seen and evaluated in the preoperative area and the consent was reviewed. The operative site was marked with a skin marker. The patient was then brought to the operating room and given preoperative antibiotics intravenously. 1 g of Tranexamic acid was also given intravenously. A spinal anesthetic was administered by the anesthesia department. The patient was then placed on the [place] table with the bony prominences well-padded. The hip area was then prepped with a ChloraPrep solution and draped in the usual sterile fashion. A universal timeout was then performed, which confirmed the patient's name, surgical site, ALLERGIES, and procedure being performed on the consent. Next the incision site was located at 1 cm distal and 1 cm lateral to the anterior superior iliac spine. The skin and subcutaneous tissues were sharply incised. Incision was carefully dissected down to the fascia overlying the tensor fascia alfonso muscle. This fascia was then incised in line with the incision. Care was taken to stay laterally in order to avoid injuring the lateral femoral cutaneous nerve. Next, using blunt finger dissection, the tensor fascia alfonso muscle was dissected off its investing fascia. The muscle was then carefully retracted laterally with a cobra retractor over the lateral neck of the femur. Next, the circumflex vessels were identified and cauterized using the AquaMantis device. The anterior hip capsule was then exposed. The capsule was then opened and an inverted T fashion. Cobra retractors were then placed intracapsularly. The retractors were maintained intracapsular throughout the procedure. The proximal femur was then visualized. A small amount of traction was placed on the leg. The femoral neck was then osteotomized appropriate level above the lesser trochanter. A small wedge of bone was then removed from the remaining femoral head. Next, using a corkscrew the femoral head was removed from the acetabulum. On gross visual inspection, the femoral head had complete loss of articular cartilage and multiple periarticular osteophytes. The femoral head was then measured. Attention was then turned to the acetabulum. The acetabulum was exposed and any remaining labrum was excised. Sequential reaming of the acetabulum was performed using fluoroscopic guidance until there was a good bed of bleeding cancellus bone. When the appropriate size was reached, a trial was then placed. The position and fit of the trial was checked with fluoroscopy. The trial was then removed. Then, using fluoroscopic guidance, the final implant was impacted at 20 of anteversion and 40 of abduction, and fully seated in the acetabulum. 2 screws were then placed in the acetabulum. Again fluoroscopy was used to check position of the screws. Next, the liner was then impacted, with a 20 elevated liner located in the anterior superior quadrant. Component locking was confirmed. Attention was then directed to the femur. With the aid of the [place] table, the femur was externally rotated to approximately 130, extended, and adducted under the opposite leg. A side hook was then placed under the proximal femur, and the side hook elevator was used to elevate the proximal femur while releasing the capsule. Retractors were then placed. A capsular release was performed, as well as a release of the conjoined tendon, which afforded excellent visualization of the proximal femur. Next, a box osteotome was used to lateralize the proximal femur. A tool filer hand was then used to locate the femoral canal. Sequential broaching was then performed with appropriate size which afforded excellent fixation in the proximal femur. A trial was then placed with appropriate head and neck, and the hip was gently reduced with the aid of the [place] table. Fluoroscopy was then used to check position of the components, as well as to ensure equal leg lengths. The hip was then gently dislocated and the trials were then removed. Final implants were then impacted and the hip was again reduced. Final fluoroscopic x-rays confirmed that the components were in anatomic position, as well as equal leg lengths. The hip was also taken through range of motion, and found to be stable. The hip was then copiously irrigated with antibiotic solution with pulsatile lavage. The hip was then irrigated with Irrisept solution. The soft tissues were then injected with a ropivacaine solution, which consisted of 246.25 mg of ropivacaine, 0.5 mg of epinephrine, 30 mg of Toradol, 80 g of clonidine, and 48.45 mL of sterile water, for a total of 100 mL of fluid injected. A second dose of 1 g of Tranexamic acid was also given intravenously. Any blood collected by Cell Saver was then returned to the patient at this time. The fascia was then closed with 2-0 strata fix suture. The subcutaneous tissue was closed with 3-0 Vicryl. The subcuticular tissue was closed with 3-0 strata fix suture. The skin was then closed with Exofin skin glue. After the glue and dried, and Optifoam silver impregnated dressing was applied. The patient was then transferred to the recovery room in stable condition. The assistant store director JONI Monteiro was required due to the complexity of surgery, and the need for skilled assistant store director for positioning, draping, exposure, retraction, and closure of the wound.
[2020-06-12] MEDS ORDERED: CLINDAMYCIN 900 MG in DEXTROSE 5% IN WATER 50 ML IVPB STA ×2 (14:19)
[2020-06-12] MEDS ORDERED: SODIUM CHLORIDE 0.9% 1,000 ML IV ONE ×2 (14:30)
--- NOTE | 2020-06-12 14:40 | XR ---
EXAMINATION TYPE: XR Hip Limited RT DATE OF EXAM: 06/12/2020 Comparison: None Clinical History: 64-year-old male Status post hip surgery, assess surgical alignment Findings: Image shows placement of right hip total arthroplasty. Acetabular cup and femoral stem components of the prosthesis are well seated without periprosthetic fracture. Alignment grossly anatomic. There is scattered soft tissue air related to recent operation. Impression: Uncomplicated postoperative appearance right hip total arthroplasty.
[2020-06-12] MEDS ORDERED: ceFAZolin 3 GM in SODIUM CHLORIDE 0.9% 100 ML IVPB SCH (16:00)
[2020-06-12] MEDS ORDERED: CLINDAMYCIN 900 MG in DEXTROSE 5% IN WATER 50 ML IVPB SCH ×2 (16:00)
--- NOTE | 2020-06-12 16:17 | XR ---
EXAMINATION TYPE: XR Hip Limited RT, FL guidance operating room DATE OF EXAM: 06/12/2020 Comparison: None Clinical History: 64-year-old male RIGHT ANTERIOR HIP Findings: Intraoperative images demonstrating right hip total arthroplasty. FLUOROSCOPY Fluoroscopy time of 19 seconds was used during anterior right hip replacement. 2 image/s document/s the procedure. Impression: Intraoperative fluoroscopy as above.
[2020-06-12] MEDS: HYDROcodone/APAP 7.5-325MG 1 EACH TAB PO PRN ×2 (16:47→23:47)
[2020-06-12] MEDS: SODIUM CHLORIDE 0.9% 1,000 ML IV SCH (16:57)
[2020-06-12] MEDS: CLINDAMYCIN 900 MG in DEXTROSE 5% IN WATER 50 ML IVPB SCH ×2 (20:41)
[2020-06-12] MEDS: ASPIRIN 325 MG TAB PO SCH (20:41)
[2020-06-12] MEDS ORDERED: SENNOSIDES-DOCUSATE SODIUM 1 EACH TAB PO SCH (21:00)
[2020-06-13] MEDS: SODIUM CHLORIDE 0.9% 1,000 ML IV SCH (04:17)
[2020-06-13 04:36] VITALS: BP 112/71; PULSE 80; RESP 20; TEMP 97.5
[2020-06-13] MEDS: CLINDAMYCIN 900 MG in DEXTROSE 5% IN WATER 50 ML IVPB SCH ×2 (04:39)
[2020-06-13] MEDS: HYDROcodone/APAP 7.5-325MG 1 EACH TAB PO PRN (05:32)
[2020-06-13] MEDS ORDERED: LEVOTHYROXINE 25 MCG TAB PO SCH (06:30)
[2020-06-13] MEDS ORDERED: LEVOTHYROXINE 100 MCG TAB PO SCH (06:30)
[2020-06-13 07:11] LABS: Basophils % (A) 0 %; Eosinophils % (A) 0 %; HCT 41.2 % (39.0-53.0); HGB 13.7 gm/dL (13.0-17.5); Lymphocytes # (A) 1.4 k/uL (1.0-4.8); Lymphocytes % (A) 13 %; MCH 31.7 pg (25.0-35.0); MCHC 33.3 g/dL (31.0-37.0); MCV 95.3 fL (80.0-100.0); Mean Platelet Volume 7.1; Monocytes # (A) 0.8 k/uL (0-1.0); Monocytes % (A) 7 %; Neutrophils # (A) 8.5 k/uL (1.3-7.7); Neutrophils % (A) 79 %; Platelet Count 256 k/uL (150-450); RBC 4.33 m/uL (4.30-5.90); RDW 13.6 % (11.5-15.5); WBC 10.8 k/uL (3.8-10.6)
[2020-06-13] MEDS: ASPIRIN 325 MG TAB PO SCH (08:52)
[2020-06-13] MEDS ORDERED: MELOXICAM 7.5 MG TAB PO SCH (09:00)
[2020-06-13] MEDS ORDERED: NIACIN TR 500 MG CAPLET PO SCH (09:00)
[2020-06-13] MEDS ORDERED: ISOSORBIDE MONONITRATE ER 30 MG TAB.ER.24H PO SCH (09:00)
[2020-06-13] MEDS ORDERED: atenoloL 50 MG TAB PO SCH (09:00)
[2020-06-13] MEDS ORDERED: CHOLECALCIFEROL 25 MCG (1000 IU) TABLET PO SCH (09:00)
[2020-06-13] MEDS ORDERED: NON FORMULARY DRUG (Vitamin B Complex [Vitamin B Complex] 1 EACH Capsule) PO SCH (09:00)
[2020-06-13] MEDS ORDERED: MULTIVITAMINS, THERA 1 EACH TAB PO SCH (09:00)
--- NOTE | 2020-06-13 10:03 | P.DS ---
Providers Expected date of discharge: 06/13/20 Attending physician: Gene Miles Consults: 06/12/20 11:28 Consult Physician Routine Consulting Provider: Litzy Osorio Consult Reason/Comments: medical management Do you want consulting provider notified?: Yes Primary care physician: Gene Colon - Discharge Diagnosis(es) (1) Primary osteoarthritis of right hip Current Visit: Yes Status: Acute (2) Status post total hip replacement, right Current Visit: Yes Status: Acute Hospital Course: This is a 64-year-old male with history of degenerative arthritis of the right hip. The patient is admitted to the hospital on 06/12/2020 for total right hip arthroplasty. The patient has done well postoperatively. He was cleared preoperatively by his primary care physician. Vital signs and labs on postop day 1 her stable. Patient may be discharged to home today in good condition. Patient Condition at Discharge: Good Plan - Discharge Summary Discharge Rx Participant: Yes New Discharge Prescriptions: New Aspirin 325 mg PO BID #60 tab HYDROcodone/APAP 7.5-325MG [[place] 7.5-325] 1 - 2 tab PO Q6H PRN #32 tab PRN Reason: Pain Sennosides [Senokot] 2 tab PO DAILY PRN #60 tablet PRN Reason: Constipation No Action [place]-3/Dha/Epa/Fish Oil [Fish Oil 500 mg Softgel] 300 mg PO DAILY Vitamin B Complex 1 each PO DAILY Multivitamins, Thera [Multivitamin (formulary)] 1 tab PO DAILY Aspirin 81 mg PO DAILY Isosorbide Mononitrate ER [Imdur] 30 mg PO QAM Levothyroxine Sodium [Synthroid] 200 mcg PO QAM atenoloL [Atenolol] 100 mg PO QAM Cholecalciferol (Vitamin D3) [Vitamin D3] 2,000 unit PO DAILY Torsemide [Demadex] 10 mg PO DAILY Niacin [Niaspan] 1,000 mg PO DAILY Levothyroxine Sodium [Synthroid] 25 mcg PO DAILY Discharge Medication List Aspirin 81 mg PO DAILY 08/04/17 [History] Cholecalciferol (Vitamin D3) [Vitamin D3] 2,000 unit PO DAILY 08/04/17 [History] Isosorbide Mononitrate ER [Imdur] 30 mg PO QAM 08/04/17 [History] Levothyroxine Sodium [Synthroid] 200 mcg PO QAM 08/04/17 [History] Multivitamins, Thera [Multivitamin (formulary)] 1 tab PO DAILY 08/04/17 [History] [place]-3/Dha/Epa/Fish Oil [Fish Oil 500 mg Softgel] 300 mg PO DAILY 08/04/17 [History] Vitamin B Complex 1 each PO DAILY 08/04/17 [History] atenoloL [Atenolol] 100 mg PO QAM 08/04/17 [History] Torsemide [Demadex] 10 mg PO DAILY 03/23/19 [History] Levothyroxine Sodium [Synthroid] 25 mcg PO DAILY 06/06/20 [History] Niacin [Niaspan] 1,000 mg PO DAILY 06/06/20 [History] Aspirin 325 mg PO BID #60 tab 06/12/20 [Rx] HYDROcodone/APAP 7.5-325MG [[place] 7.5-325] 1 - 2 tab PO Q6H PRN #32 tab 06/12/20 [Rx] Sennosides [Senokot] 2 tab PO DAILY PRN #60 tablet 06/12/20 [Rx] Follow up Appointment(s)/Referral(s): Gene Miles DO [Doctor of Osteopathic Medicine] - 2 Weeks [facility] Visiting Nurse, [NON-STAFF] - 1 Week Activity/Diet/Wound Care/Special Instructions: Weightbearing as tolerated with walker. Leave dressing intact. Dressing may be removed by home care nurse or by patient in 10 days. May shower with dressing on. Please take aspirin 325mg twice daily for 30 days to prevent blood clots. Recommend use of compression stockings daily until follow up to help prevent swelling and blood clots. May remove at night before sleeping. Please follow-up with [facility] in 2 weeks and call with any questions or concerns, . Discharge Disposition: HOME WITH HOME HEALTH SERVICES
--- NOTE | 2020-06-13 12:36 | P.CONS ---
History of Present Illness - Reason for Consult Consult date: 06/13/20 Medical management with history of hypertension and hypothyroidism - Chief Complaint Osteoarthritis of the right hip status post total hip replacement - History of Present Illness This is a 64-year-old male who was recently admitted under orthopedic services for primary osteoarthritis of the right hip and underwent total hip replacement with Dr. Dr. Miles and is being closely monitored. Patient has a history of hyperlipidemia, hypertension, osteoarthritis, thyroid disorder. Patient previ ously had total left hip replacement and was here electively for total right hip. Patient denies any chest pain, shortness of breath, or palpitations. Patient is afebrile. Patient was resumed on regular diet and tolerating with no reports of nausea or vomiting noted. Slightly on the hypotensive side status post surgery and will hold hypertension meds in the evening and will resume home medications and a.m. Patient had pre-op labs drawn last week which were within normal limits. Patient states he follows with Dr. Soriano in the outpatient setting. Patient is voiding with no difficulty and reports the passing gas but no bowel movements as of yet. Continue with bowel regimen. Review of Systems Constitutional: Reports as per HPI Eyes: denies blurred vision, denies pain Ears, nose, mouth and throat: Denies headache, Denies sore throat Cardiovascular: Denies chest pain, Denies shortness of breath Respiratory: Denies cough Gastrointestinal: Denies abdominal pain, Denies diarrhea, Denies nausea, Denies vomiting Musculoskeletal: Denies myalgias Musculoskeletal: right: hip pain, absent: hip stiffness, hip swelling Integumentary: Denies pruritus, Denies rash Neurological: Denies numbness, Denies weakness Psychiatric: Denies anxiety, Denies depression Endocrine: Denies fatigue, Denies weight change Past Medical History Past Medical History: Hyperlipidemia, Hypertension, Osteoarthritis (OA), Thyroid Disorder History of Any Multi-Drug Resistant Organisms: None Reported Past Surgical History: Heart Catheterization, Joint Replacement, Orthopedic Surgery Additional Past Surgical History / Comment(s): total left hip, heart cath x2, rt hand surg,rt arm tendon repair Past Anesthesia/Blood Transfusion Reactions: No Reported Reaction Smoking Status: Former smoker - Past Family History Mother Family Medical History: Deep Vein Thrombosis (DVT) Brother(s) Family Medical History: Deep Vein Thrombosis (DVT) Sister(s) Family Medical History: Cancer Medications and Allergies Home Medications Medication Instructions Recorded Confirmed Type Aspirin 81 mg PO DAILY 08/04/17 06/06/20 History Cholecalciferol (Vitamin D3) 2,000 unit PO DAILY 08/04/17 06/12/20 History [Vitamin D3] Isosorbide Mononitrate ER [Imdur] 30 mg PO QAM 08/04/17 06/06/20 History Levothyroxine Sodium [Synthroid] 200 mcg PO QAM 08/04/17 06/12/20 History Multivitamins, Thera [Multivitamin 1 tab PO DAILY 08/04/17 06/06/20 History (formulary)] [place]-3/Dha/Epa/Fish Oil [Fish Oil 300 mg PO DAILY 08/04/17 06/06/20 History 500 mg Softgel] Vitamin B Complex 1 each PO DAILY 08/04/17 06/12/20 History atenoloL [Atenolol] 100 mg PO QAM 08/04/17 06/06/20 History Torsemide [Demadex] 10 mg PO DAILY 03/23/19 06/12/20 History Levothyroxine Sodium [Synthroid] 25 mcg PO DAILY 06/06/20 06/06/20 History Niacin [Niaspan] 1,000 mg PO DAILY 06/06/20 06/12/20 History Aspirin 325 mg PO BID #60 tab 06/12/20 Rx HYDROcodone/APAP 7.5-325MG [[place] 1 - 2 tab PO Q6H PRN #32 tab 06/12/20 Rx 7.5-325] Sennosides [Senokot] 2 tab PO DAILY PRN #60 tablet 06/12/20 Rx Allergies Allergy/AdvReac Type Severity Reaction Status Date / Time azithromycin [From Zithromax] Allergy Rash/Hives Verified 06/06/20 09:04 citalopram [From Celexa] Allergy Unknown Verified 06/06/20 09:04 fenofibrate Allergy JOINT PAIN Verified 06/06/20 09:04 hydrochlorothiazide Allergy Unknown Verified 06/06/20 09:04 Penicillins Allergy Dyspnea Verified 06/06/20 09:04 [id number]-[id number]-Yir Reductase Allergy muscle pain Verified 06/06/20 09:04 Inhibitor Physical Exam Vitals: Vital Signs Temp Pulse Pulse Pulse Resp BP Pulse Ox 06/13/20 04:36 97.5 F L 80 20 112/71 94 L 06/12/20 20:30 98.0 F 84 18 124/66 92 L 06/12/20 20:05 73 70 84 18 06/12/20 19:15 97.8 F 75 18 130/77 91 L 06/12/20 18:24 73 132/80 06/12/20 18:15 71 146/81 98 06/12/20 17:45 77 151/81 06/12/20 17:15 70 154/87 06/12/20 17:00 68 140/87 95 06/12/20 16:45 65 146/84 96 06/12/20 16:30 97.8 F 69 18 152/83 96 06/12/20 16:00 63 16 138/67 98 06/12/20 15:30 68 16 147/63 99 06/12/20 15:00 58 L 16 139/61 99 06/12/20 14:28 62 16 106/56 97 06/12/20 14:13 64 18 96/56 100 06/12/20 13:58 62 16 96/53 97 06/12/20 13:53 96.8 F L 66 18 86/58 98 Intake and Output 06/12/20 06/13/20 06/13/20 22:59 06:59 14:59 Intake Total 270 1500 Balance 270 1500 Intake: IV 200 Intake, IV Titration 70 900 Amount Clindamycin 900 mg In 100 Dextrose 5% in Water 50 ml @ 50 mls/hr IVPB Q8H [facility] Rx#:[id number] Sodium Chloride 0.9% 1, 70 800 000 ml @ 70 mls/hr IV . [id number] DESM[facility] Rx#:[id number] Oral 600 Other: Voiding Method Toilet Toilet # Voids 1 3 Gen: This is a 64-year-old male sitting up awake, alert and oriented 3, well- developed, well-nourished, obese. HEENT: Head is atraumatic, normocephalic. Pupils equal, round. Sclerae is anicteric. NECK: Supple. No JVD. No lymphadenopathy. No thyromegaly. LUNGS: Clear to auscultation. No wheezes or rhonchi. No intercostal retractions. HEART: Regular rate and rhythm. No murmur. ABDOMEN: Soft. Obese. Bowel sounds are present. No masses. No tenderness. EXTREMITIES: No pedal edema. No calf tenderness. Right surgical hip dressing is dry and intact with no surrounding redness or swelling noted NEUROLOGICAL: Patient is awake, alert and oriented x3. No focal deficits noted. Results CBC & Chem 7: 06/13/20 06:16 Labs: Abnormal Lab Results - Last 24 Hours (Table) 06/13/20 Range/Units 06:16 WBC 10.8 H (3.8-10.6) k/uL Neutrophils # 8.5 H (1.3-7.7) k/uL Assessment and Plan Assessment: Primary degenerative osteoarthritis of the right hip Status post total right hip arthroplasty Hypertension, continue with home medications Hypothyroidism, continue with home medication Hyperlipidemia Morbid obesity with a BMI of 40.4 DVT prophylaxis per primary service Plan: Continue with current medications and appropriate home medications have been resumed. Following along with orthopedic surgery. Patient has worked with physical therapy and was able to walk with no difficulties and will be going home and Homecare has been arranged. Instructed the patient to follow-up with primary care provider upon discharge. Incentive spirometer at the bedside and instructed the patient to continue using at least 10 times every hour while awake even in the outpatient setting. Also instructed the patient to elevate the lower extremities while at rest. Thank you for this consultation.
== END 2020-06-13 12:00 | disposition home health service (06) ==
LOC: OR 10:21 → 5NMEDONC 15:19 → OR 06-13 12:00
PROVIDERS: ATTEND Orthopaedic Surgery
DX: M16.11 Unilateral primary osteoarthritis, right hip (principal); I10 Essential (primary) hypertension; E78.2 Mixed hyperlipidemia; E03.9 Hypothyroidism, unspecified; R73.03 Prediabetes; H91.90 Unspecified hearing loss, unspecified ear; E66.9 Obesity, unspecified; Z68.41 Body mass index [BMI] 40.0-44.9, adult; R26.81 Unsteadiness on feet; K30 Functional dyspepsia; Z96.642 Presence of left artificial hip joint; Z90.89 Acquired absence of other organs; Z82.49 Family history of ischemic heart disease and other diseases of the circulatory system; Z87.891 Personal history of nicotine dependence; G89.29 Other chronic pain; M54.9 Dorsalgia, unspecified; E55.9 Vitamin D deficiency, unspecified; Z97.3 Presence of spectacles and contact lenses; Z98.890 Other specified postprocedural states; I25.10 Atherosclerotic heart disease of native coronary artery without angina pectoris; Z88.1 Allergy status to other antibiotic agents; Z88.0 Allergy status to penicillin; Z88.8 Allergy status to other drugs, medicaments and biological substances; Z79.82 Long term (current) use of aspirin; Z79.890 Hormone replacement therapy; Z79.899 Other long term (current) drug therapy
CPT/HCPCS: 97110; 97161; 97166; 86891; 86900; 86901; 85025; 86850; 88300; 87635; 73501; 27130; P9022; C1776; J0171; J1100; J0690 ×2; J2405; J1885; J2795; J0735; J1170